=== PATIENT | female | born 2000 | race African-American/Black ===

== ENCOUNTER 2022-07-14 17:12 | Emergency (ER) | payer OTHER ==
[2022-07-14 17:24] VITALS: BP 118/75
--- NOTE | 2022-07-14 17:43 | ED Physician Documentation ---
PD HPI ABD PAIN - Stated complaint Stated Complaint: EXCESSIVE BLEEDING - Chief complaint Chief Complaint: Abd Pain - History obtained from History obtained from: Patient - Additional information Additional information: She had a child in January, subsequently had 2 normal menses and then had a copper IUD placed. Since then has had normal menses but has been spotting for the last 2 weeks. There is no associated urinary symptoms, cramping, flank pain or suprapubic pain. Review of Systems Constitutional: denies: Fever, Chills Cardiac: denies: Chest pain / pressure, Palpitations Respiratory: denies: Dyspnea, Cough PD PAST MEDICAL HISTORY - Present Medications Home Medications: Ambulatory Orders Medication Instructions Recorded Confirmed Doxycycline Hyclate 100 mg PO BID #14 07/14/22 - Allergies Allergies/Adverse Reactions: Allergies Allergy/AdvReac Type Severity Reaction Status Date / Time No Known Drug Allergies Allergy Verified 07/14/22 17:24 PD ED PE NORMAL - Vitals Vital signs reviewed: Yes - General General: Alert and oriented X 3, No acute distress - Abdomen Abdomen: Normal bowel sounds, Soft, Non tender - Female Female : Other (Exam done with Maren kent present and chaperoning. She has a clear case of cervicitis which is friable and actually starts bleeding more with manipulation and swabbing during exam. No tenderness. IUD strings appear appropriate.) - Neuro Neuro: Alert and oriented X 3, Normal speech Results - Vitals Vitals: Vital Signs - 24 hr 07/14/22 17:19 Temperature 36.4 C L Heart Rate 71 Respiratory 14 Rate Blood Pressure 118/75 O2 Saturation 100 Oxygen O2 Source Room air - Labs Labs: Laboratory Tests 07/14/22 07/14/22 17:32 17:32 WBC 7.5 RBC 4.99 Hgb 10.1 L Hct 34.1 L MCV 68.3 L MCH 20.2 L MCHC 29.6 L RDW 17.2 H Plt Count 240 MPV 11.0 H Neut # (Auto) 4.1 Lymph # (Auto) 2.5 Lane # (Auto) 0.7 Eos # (Auto) 0.2 Baso # (Auto) 0.0 Absolute Nucleated RBC 0.00 Nucleated RBC % 0.0 Manual Slide Review Indicated Platelet Estimate NORMAL (130-450,000) Platelet Morphology NORMAL APPEARANCE RBC Morph Micro Appear 1+ OVALOCYTES Sodium 138 Potassium 3.9 Chloride 103 Carbon Dioxide 26 Anion Gap 9.0 BUN 18 Creatinine 0.6 Estimated GFR (MDRD) 150 Glucose 90 Calcium 9.4 Total Bilirubin < 0.2 L AST 18 ALT 15 Alkaline Phosphatase 63 Total Protein 8.3 H Albumin 4.4 Globulin 3.9 Albumin/Globulin Ratio 1.1 Lipase 41 PD MEDICAL DECISION MAKING - ED course ED course: 21-year-old woman presents with vaginal spotting. She has an IUD in place. Examination demonstrates cervicitis which is quite friable and presumed to be the source of her bleeding so she is treated with IM Rocephin and p.o. doxycycline pending follow-up. Departure - Departure Disposition: Home, Self Care Clinical Impression: Vaginal bleeding, Cervicitis Condition: Good Record reviewed to determine appropriate education?: Yes Instructions: ED Bleed Irregular Vaginal Follow-Up: [facility] [Provider Group] Prescriptions: Doxycycline Hyclate 100 mg PO BID #14 Comments: You are seen today for bleeding that looks like it is probably due to cervicitis. I am treating you with antibiotics both the shot here known as ceftriaxone and weeks worth of pills, doxycycline. You should stay out of the sun too much while you are on the doxycycline. Return or follow-up with administrative project coordinator if not better over the next few days. Sooner if worse.
[2022-07-14 17:47] LABS: BASOPHILS % (AUTO) 0.4 %; EOSINOPHILS # (AUTO) 0.2 10^3/uL (0.0-0.7); EOSINOPHILS % (AUTO) 2.3 %; HCT - HEMATOCRIT 34.1 % (37.0-47.0); HGB - HEMOGLOBIN 10.1 g/dL (12.0-16.0); LYMPHOCYTES # (AUTO) 2.5 10^3/uL (1.5-3.5); LYMPHOCYTES % (AUTO) 33.6 %; MEAN CORPUSCULAR HEMOGLOBIN 20.2 pg (27.0-31.0); MEAN CORPUSCULAR HGB CONC 29.6 g/dL (32.0-36.0); MEAN CORPUSCULAR VOLUME 68.3 fL (81.0-99.0); MONOCYTES # (AUTO) 0.7 10^3/uL (0.0-1.0); MONOCYTES % (AUTO) 9.1 %; NEUTROPHILS # (AUTO) 4.1 10^3/uL (1.5-6.6); NEUTROPHILS % (AUTO) 54.5 %; PLT - PLATELET COUNT 240 10^3/uL (130-450); RED BLOOD COUNT 4.99 10^6/uL (4.20-5.40); RED CELL DISTRIBUTION WIDTH 17.2 % (12.0-15.0); WHITE BLOOD COUNT 7.5 x10^3/uL (4.8-10.8)
[2022-07-14 17:49] LABS: SLIDE REVIEW? Indicated
[2022-07-14 17:58] LABS: ALBUMIN 4.4 g/dL (3.2-5.5); ALBUMIN/GLOBULIN RATIO 1.1 (1.0-2.2); ALKALINE PHOSPHATASE 63 IU/L (42-121); ALT ALANINE AMINOTRANSFERASE 15 IU/L (10-60); AST ASPARTATE AMINOTRANSFERASE 18 IU/L (10-42); BILIRUBIN,TOTAL < 0.2 mg/dL (0.2-1.0); BUN - BLOOD UREA NITROGEN 18 mg/dL (6-20); CALCIUM 9.4 mg/dL (8.5-10.3); CARBON DIOXIDE - CO2 26 mmol/L (21-32); CHLORIDE 103 mmol/L (101-111); CREATININE 0.6 mg/dL (0.4-1.0); GFR - MDRD 150 (>89); GLUCOSE 90 mg/dL (70-100); LIPASE 41 U/L (22-51); POTASSIUM 3.9 mmol/L (3.5-5.0); SODIUM 138 mmol/L (135-145); TOTAL PROTEIN 8.3 g/dL (6.7-8.2)
[2022-07-14 18:09] LABS: PLATELET ESTIMATE, MANUAL NORMAL (130-450,000) (NORMAL); PLATELET MORPHOLOGY NORMAL APPEARANCE (NORMAL)
[2022-07-14] MEDS ORDERED: cefTRIAXone 500 MG VIAL IM STA (18:22)
[2022-07-14] MEDS ORDERED: LIDOCAINE 1% 2 ML VIAL MC ONE (18:22)
[2022-07-14 22:04] LABS: CHLAMYDIA TRACHOMATIS DNA NEGATIVE (NEGATIVE); NEISSERIA GONORRHOEAE DNA NEGATIVE (NEGATIVE); TRICHOMONAS VAGINALIS DNA NEGATIVE (NEGATIVE)
== END 2022-07-14 19:15 | disposition home or self-care (01) ==
LOC: ED 17:12
DX: N72 Inflammatory disease of cervix uteri (principal); Z97.5 Presence of (intrauterine) contraceptive device
CPT/HCPCS: 36415; 80053; 83690; 85025; 87491; 87591; 87661; 96372; 99282; 99283